=== PATIENT | female | born 1970 | race Caucasian/White ===

== ENCOUNTER 2016-11-29 03:00 | Emergency (ER) | payer BC ==
[~2016-11-29] VITALS: Ht 165.1 cm; Wt 62.2 kg
[~2016-11-29 03:00] MED LIST: JUNEL FE 1/21 TABLET PO; VISTARIL25 MG PO
[2016-11-29 03:18] LABS: HEMATOCRIT 39.7 % (36.0-46.0); MCH 29.5 PG (29.0-34.0); MCHC 32.7 G/DL (30.0-36.0); MEAN PLAT.VOLUME 10.5 uM^3 (9.5-12.4); PLATELET COUNT 218 K/uL (156-360); RBC DIS.WIDTH-CV 12.5 % (11.8-14.6); RBC DIS.WIDTH-SD 41.4 % (39-53); RED BLOOD COUNT 4.41 M/uL (3.80-5.20); WHITE BLOOD COUNT 5.5 K/uL (4.1-10.2)
[2016-11-29 04:10] LABS: ALKALINE PHOSPHATASE 39 IU/L (3-129); ANION GAP 8 MEQ/L (2-14); CHLORIDE 109 mEq/L (99-109); GFR ESTIMATE (CALCULATED) > 59 mL/min/; GLUCOSE 119 mg/dL (70-99); LIPASE 43 U/L (1.0-51.0); QUANTITATIVE HCG < 4.0 MIU/ML; SODIUM 140 mEq/L (136-147); TOTAL BILIRUBIN 0.3 mg/dL (0.0-1.0); UREA NITROGEN (BUN) 18 mg/dL (9-23)
[2016-11-29 06:32] LABS: ADD MIUA? NO; BILIRUBIN NEGATIVE; BLOOD NEGATIVE; COLOR YELLOW ((YELLOW)); GLUCOSE (STRIP) NEGATIVE; KETONES NEGATIVE; LEUKOCYTES NEGATIVE; NITRITE NEGATIVE; PROTEIN (STRIP) NEGATIVE; SPECIFIC GRAVITY 1.036 (1.000-1.030); UCUL ADDED? NO; UROBILINOGEN 0.2 MG/DL (0.2-1.0)
[2016-11-29] MEDS ORDERED: ZOFRAN8 MG PO (07:54)
[2016-11-29] MEDS ORDERED: NORCO 5/3251 TABLET PO (07:54)
[2016-11-29 08:06] VITALS: BP 119/70
== END 2016-11-29 08:15 | disposition home or self-care (01) ==
LOC: EME 03:00
DX: R10.84 Generalized abdominal pain (principal); R11.0 Nausea; Z79.3 Long term (current) use of hormonal contraceptives
CPT/HCPCS: 74177; 76856; 80053; 81003; 83690; 84702; 85027; 99281; 99285; J2270; J2765; J7030